=== PATIENT | male | born 1995 | race Caucasian/White ===

== ENCOUNTER 2017-08-14 16:31 | Emergency (ER) | payer MEDICAID ==
[~2017-08-14] VITALS: Ht 182.9 cm; Wt 48.7 kg
[~2017-08-14 16:31] MED LIST: CLIN-26 PO; HYDR-565 PO
[2017-08-14 17:06] LABS: BASOPHILS % (AUTO) 0.4 % (0-1); EOSINOPHILS % (AUTO) 0.1 % (0-6); HEMATOCRIT 48.3 % (42.0-52.0); HEMOGLOBIN 16.9 g/dl (14.0-17.9); LYMPHOCYTES # (AUTO) 1.1 X10'3 (1.1-4.8); LYMPHOCYTES % (AUTO) 11.5 % (21-51); MEAN CORPUSCULAR HEMOGLOBIN 31.4 PG (27.0-31.0); MEAN CORPUSCULAR HGB CONC 34.9 % (33.0-36.5); MEAN CORPUSCULAR VOLUME 90.1 FL (78-98); MEAN PLATELET VOLUME 9.5 FL (7.4-10.4); MONOCYTES # (AUTO) 0.5 X10'3 (0-0.9); MONOCYTES % (AUTO) 5.1 % (2-12); NEUTROPHILS % (AUTO) 82.9 % (42-75); PLATELET COUNT 223 X10'3 (140-440); RED BLOOD COUNT 5.37 X10'6 (4.70-6.10); RED CELL DISTRIBUTION WIDTH 12.8 % (11.5-14.5); WHITE BLOOD COUNT 9.7 X10'3 (4.5-11.0)
[2017-08-14 17:15] LABS: INR 1.1 INR; PROTHROMBIN TIME 11.3 SECONDS (9.0-12.0)
[2017-08-14 17:21] LABS: ALANINE AMINOTRANSFERASE 25 U/L (12-78); ALBUMIN 4.4 G/DL (3.4-5.0); ALBUMIN/GLOBULIN RATIO 1.3 (1.1-1.5); ALKALINE PHOSPHATASE 112 IU/L (20-180); ANION GAP 13 (8-16); ASPARTATE AMINO TRANSFERASE 22 U/L (10-37); BILIRUBIN,TOTAL 0.9 MG/DL (0.1-1.0); BLOOD UREA NITROGEN 20 MG/DL (7-18); BUN/CREATININE RATIO 20.6 (5.4-32.0); CALCIUM 9.9 MG/DL (8.5-10.1); CHLORIDE 97 MMOL/L (99-107); CREATININE 0.97 MG/DL (0.60-1.10); GLUCOSE 151 MG/DL (70-104); POTASSIUM 4.2 MMOL/L (3.5-5.1); SODIUM 133 MMOL/L (135-145); TOTAL CARBON DIOXIDE 22.9 MMOL/L (24-32); TOTAL PROTEIN 7.9 G/DL (6.4-8.2); eGFR > 90 ML/MIN
[2017-08-14 18:37] LABS: CLARITY,URINE CLOUDY (Clear); COLOR,URINE YELLOW (Yellow); GLUCOSE, URINE NEGATIVE (Neg); KETONES,URINE >=80 mg/dl (Neg); LEUKOCYTE ESTERASE ,URINE LARGE (Neg); NITRITES, URINE NEGATIVE (Neg); OCCULT BLOOD,URINE TRACE-INTACT (Neg); PH,URINE 6.5 (4.8-8.0); PROTEIN,URINE TRACE mg/dl (Neg)
[2017-08-14 18:48] LABS: UA COLLECTION TYPE CLN CATCH MIDSTREAM
[2017-08-14 18:50] LABS: BACTERIA,URINE FEW /HPF (Neg); SQUAMOUS EPITHELIAL CELL,UR FEW /LPF (FEW); WBC CLUMPS,URINE MODERATE /HPF (NEGATIVE); WBC,URINE TNTC /HPF (0-4)
[2017-08-14] MEDS ORDERED: ketorolac trometh. 30mg/ml inj. IV ONE ×2 (19:10→20:50)
[2017-08-14] MEDS ORDERED: normal saline 1000ML IV soln IV ONE (19:10)
[2017-08-14] MEDS ORDERED: morphine 4 MG/ML inj SYRINge IV PRN (19:10)
[2017-08-14] MEDS ORDERED: CefTRIAXone 250MG IM Kit w/LIDOcaine IM ONE (19:25)
[2017-08-14] MEDS ORDERED: azithromycin 250mg tablet PO ONE (19:25)
[2017-08-14] MEDS ORDERED: ondansetron/PF 4mg/2ml inj IV ONE (19:30)
[2017-08-14 20:43] VITALS: BP 128/89
[2017-08-14] MEDS ORDERED: ONDA8TAB6 PO (20:49)
[2017-08-14] MEDS ORDERED: proCHLORperazine 10 MG/2 ml inj IV ONE (20:50)
== END 2017-08-14 21:36 | disposition home or self-care (01) ==
LOC: ER 16:32
DX: N34.2 Other urethritis (principal); F17.200 Nicotine dependence, unspecified, uncomplicated; F12.10 Cannabis abuse, uncomplicated; Z88.8 Allergy status to other drugs, medicaments and biological substances
CPT/HCPCS: 36415; 80053; 81001; 85025; 85610; 87088; 87491; 87591; 96361; 96372; 96374; 96375; 99284; J0696; J0780; J1885; J2270; J2405; J7030

== ENCOUNTER 2017-08-16 12:32 | Emergency (ER) | payer MEDICAID ==
[~2017-08-16] VITALS: Ht 185.4 cm; Wt 52.0 kg
[~2017-08-16 12:32] MED LIST changes: +ONDA8TAB6 PO
[2017-08-16 12:37] VITALS: BP 107/89
[2017-08-16] MEDS ORDERED: NICO-687 TOP (12:49)
== END 2017-08-16 13:12 | disposition home or self-care (01) ==
LOC: ER 12:33
DX: F11.10 Opioid abuse, uncomplicated (principal); F17.210 Nicotine dependence, cigarettes, uncomplicated; F12.90 Cannabis use, unspecified, uncomplicated; Z90.49 Acquired absence of other specified parts of digestive tract; Z98.890 Other specified postprocedural states; Z88.8 Allergy status to other drugs, medicaments and biological substances; Z79.899 Other long term (current) drug therapy
CPT/HCPCS: 99282

== ENCOUNTER 2017-09-21 01:25 | Inpatient (IN) | payer MEDICAID ==
[~2017-09-21] VITALS: Ht 185.4 cm; Wt 55.7 kg
[~2017-09-21 01:25] MED LIST changes: +CEPH500C5 PO
[2017-09-21] MEDS ORDERED: piperacillin/tazo 3.375gm/50ml 50 ML IV ONE (01:50)
[2017-09-21] MEDS ORDERED: vancomycin/NS 1 GM ADD-VANTAGE 250 ML IV ONE (01:50)
[2017-09-21] MEDS ORDERED: ondansetron/PF 4mg/2ml inj IV ONE (01:50)
[2017-09-21] MEDS ORDERED: MORPHINE 2MG in 2ml NS syringe IV PRN ×2 (01:50→03:10)
[2017-09-21] MEDS ORDERED: normal saline 1000ML IV soln IV ONE (01:50)
[2017-09-21] MEDS ORDERED: TETanus/Pertussis (Acell)/Diphther VAC/PF (Tdap-Adult) 0.5ml syringe IMVAC ONE (01:55)
[2017-09-21 02:43] LABS: BASOPHILS # (AUTO) 0.1 X10'3 (0-0.2); BASOPHILS % (AUTO) 0.8 % (0-1); EOSINOPHILS # (AUTO) 0.2 X10'3 (0-0.9); EOSINOPHILS % (AUTO) 1.3 % (0-6); HEMATOCRIT 39.1 % (42.0-52.0); HEMOGLOBIN 13.9 g/dl (14.0-17.9); LYMPHOCYTES # (AUTO) 2.1 X10'3 (1.1-4.8); LYMPHOCYTES % (AUTO) 16.8 % (21-51); MEAN CORPUSCULAR HEMOGLOBIN 32.3 PG (27.0-31.0); MEAN CORPUSCULAR HGB CONC 35.6 % (33.0-36.5); MEAN CORPUSCULAR VOLUME 90.5 FL (78-98); MEAN PLATELET VOLUME 9.7 FL (7.4-10.4); NEUTROPHILS % (AUTO) 73.1 % (42-75); PLATELET COUNT 170 X10'3 (140-440); RED BLOOD COUNT 4.32 X10'6 (4.70-6.10); RED CELL DISTRIBUTION WIDTH 13.5 % (11.5-14.5); WHITE BLOOD COUNT 12.3 X10'3 (4.5-11.0)
[2017-09-21] MEDS: morphine 4 MG/ML inj SYRINge IV PRN ×5 (02:52→21:36)
[2017-09-21 02:57] LABS: ALANINE AMINOTRANSFERASE 26 U/L (12-78); ALBUMIN/GLOBULIN RATIO 1.2 (1.1-1.5); ALKALINE PHOSPHATASE 96 IU/L (20-180); ANION GAP 12 (8-16); ASPARTATE AMINO TRANSFERASE 17 U/L (10-37); BLOOD UREA NITROGEN 14 MG/DL (7-18); BUN/CREATININE RATIO 11.9 (5.4-32.0); CALCIUM 8.9 MG/DL (8.5-10.1); CHLORIDE 101 MMOL/L (99-107); CREATININE 1.18 MG/DL (0.60-1.10); GLUCOSE 156 MG/DL (70-104); MAGNESIUM 1.9 MG/DL (1.5-2.4); POTASSIUM 3.4 MMOL/L (3.5-5.1); SODIUM 137 MMOL/L (135-145); TOTAL CARBON DIOXIDE 23.9 MMOL/L (24-32); TOTAL PROTEIN 7.4 G/DL (6.4-8.2); eGFR 79 ML/MIN
[2017-09-21] MEDS ORDERED: potassium Cl 20 mEq SR tablet PO STA (03:31)
[2017-09-21] MEDS ORDERED: magnesium hydroxide 30ml (MOM) UD suspension PO PRN (03:50)
[2017-09-21] MEDS ORDERED: ondansetron/PF 4mg/2ml inj IV PRN (03:50)
[2017-09-21] MEDS ORDERED: acetaminophen 325mg tablet PO PRN ×2 (03:50)
[2017-09-21] MEDS ORDERED: mag hydrox/Alum hydrox/simeth 30ml oral suspension PO PRN (03:50)
[2017-09-21] MEDS: normal saline 1000ml 1,000 ML IV SCH ×3 (05:12→22:54)
[2017-09-21] MEDS ORDERED: NO HOME MEDS (05:20)
[2017-09-21 05:52] LABS: URINE AMPHETAMINE SCREEN POSITIVE (Neg); URINE BARBITUATE SCREEN NEGATIVE (Neg); URINE BENZODIAZEPINES SCREEN NEGATIVE (Neg); URINE CANNABINOID SCREEN POSITIVE (Neg); URINE COCAINE SCREEN NEGATIVE (Neg); URINE METHADONE SCREEN NEGATIVE (Neg); URINE OPIATE SCREEN POSITIVE (Neg); URINE PHENCYCLIDINE SCREEN NEGATIVE (Neg)
[2017-09-21] MEDS: piperacillin/tazo 3.375gm/50ml 50 ML IV SCH ×3 (08:00→20:10)
[2017-09-21] MEDS ORDERED: nicotine 21mg patch - 24 hr TD SCH (08:00)
[2017-09-21 13:00] VITALS: BP 113/81
[2017-09-21] MEDS ORDERED: VANCOMYCIN 750MG IV in NS 250 ML IV SCH (16:00)
[2017-09-21 18:00] VITALS: BP 129/54
[2017-09-21] MEDS ORDERED: lactobacillus rhamnosus 10,000 MMU CELLS/CAPSULE PO SCH (20:00)
[2017-09-21 22:06] VITALS: BP 122/79
[2017-09-22] MEDS: morphine 4 MG/ML inj SYRINge IV PRN (00:31)
[2017-09-22] MEDS: piperacillin/tazo 3.375gm/50ml 50 ML IV SCH (02:11)
[2017-09-23] MEDS ORDERED: VANCOMYCIN LEVEL IV NR (03:30)
== END 2017-09-22 02:35 | disposition left against medical advice (07) | DRG 351 ==
LOC: ER 01:25 → ED HOLD 03:47 → EDBEDREQ 11:50 → ORTHO 4S 13:00
PROVIDERS: ADMIT Internal Medicine; ATTEND Internal Medicine
PROC: 3E0234Z Introduction of Serum, Toxoid and Vaccine into Muscle, Percutaneous Approach (ICD-10-PCS; principal; 2017-09-21)
DX: S63.611A Unspecified sprain of left index finger, initial encounter (principal); F11.10 Opioid abuse, uncomplicated; F17.210 Nicotine dependence, cigarettes, uncomplicated; F12.10 Cannabis abuse, uncomplicated; F15.90 Other stimulant use, unspecified, uncomplicated; F43.10 Post-traumatic stress disorder, unspecified; L03.012 Cellulitis of left finger; E87.6 Hypokalemia; G89.29 Other chronic pain; Z86.14 Personal history of Methicillin resistant Staphylococcus aureus infection; Z88.8 Allergy status to other drugs, medicaments and biological substances; Z90.49 Acquired absence of other specified parts of digestive tract; Z71.6 Tobacco abuse counseling; Z23 Encounter for immunization; W01.0XXA Fall on same level from slipping, tripping and stumbling without subsequent striking against object, initial encounter; Y92.89 Other specified places as the place of occurrence of the external cause; Y99.8 Other external cause status; Y93.02 Activity, running
CPT/HCPCS: 36415; 73140; 80053; 80305; 83605; 83735; 84145; 85025; 87040; 90715; J2270; J2274; J2405; J2543; J3370; J7030

== ENCOUNTER 2017-09-24 08:58 | Inpatient (IN) | payer MEDICAID ==
[~2017-09-24] VITALS: Ht 185.4 cm; Wt 61.0 kg
[~2017-09-24 08:58] MED LIST changes: -CEPH500C5 PO; -CLIN-26 PO; -HYDR-565 PO; +NO HOME MEDS; -ONDA8TAB6 PO
[2017-09-24] MEDS ORDERED: acetaminophen 325mg tablet PO STA (09:34)
[2017-09-24] MEDS ORDERED: ibuprofen tablet 400 MG TABLET PO ONE (09:35)
[2017-09-24] MEDS ORDERED: piperacillin/tazo 3.375gm/50ml 50 ML IV ONE (09:45)
[2017-09-24] MEDS ORDERED: vancomycin/NS 1 GM ADD-VANTAGE 250 ML IV ONE (09:45)
[2017-09-24 10:43] LABS: BASOPHILS % (AUTO) 0.2 % (0-1); EOSINOPHILS # (AUTO) 0.1 X10'3 (0-0.9); EOSINOPHILS % (AUTO) 0.8 % (0-6); HEMATOCRIT 36.7 % (42.0-52.0); HEMOGLOBIN 12.9 g/dl (14.0-17.9); LYMPHOCYTES # (AUTO) 0.9 X10'3 (1.1-4.8); LYMPHOCYTES % (AUTO) 6.6 % (21-51); MEAN CORPUSCULAR HEMOGLOBIN 32.1 PG (27.0-31.0); MEAN CORPUSCULAR HGB CONC 35.2 % (33.0-36.5); MEAN CORPUSCULAR VOLUME 91.2 FL (78-98); MONOCYTES # (AUTO) 1.1 X10'3 (0-0.9); MONOCYTES % (AUTO) 8.3 % (2-12); NEUTROPHILS # (AUTO) 11.5 X10'3 (1.8-7.7); NEUTROPHILS % (AUTO) 84.1 % (42-75); PLATELET COUNT 147 X10'3 (140-440); RED BLOOD COUNT 4.02 X10'6 (4.70-6.10); RED CELL DISTRIBUTION WIDTH 13.2 % (11.5-14.5); WHITE BLOOD COUNT 13.6 X10'3 (4.5-11.0)
[2017-09-24 10:57] LABS: ALANINE AMINOTRANSFERASE 35 U/L (12-78); ALBUMIN 3.3 G/DL (3.4-5.0); ALBUMIN/GLOBULIN RATIO 0.9 (1.1-1.5); ALKALINE PHOSPHATASE 95 IU/L (20-180); ANION GAP 4 (8-16); ASPARTATE AMINO TRANSFERASE 18 U/L (10-37); BILIRUBIN,TOTAL 1.1 MG/DL (0.1-1.0); BLOOD UREA NITROGEN 9 MG/DL (7-18); BUN/CREATININE RATIO 11.7 (5.4-32.0); CALCIUM 8.8 MG/DL (8.5-10.1); CHLORIDE 100 MMOL/L (99-107); CREATININE 0.77 MG/DL (0.60-1.10); GLUCOSE 124 MG/DL (70-104); POTASSIUM 3.1 MMOL/L (3.5-5.1); SODIUM 133 MMOL/L (135-145); TOTAL CARBON DIOXIDE 28.7 MMOL/L (24-32); TOTAL PROTEIN 6.8 G/DL (6.4-8.2); eGFR > 90 ML/MIN
[2017-09-24] MEDS ORDERED: ondansetron/PF 4mg/2ml inj IV PRN (11:00)
[2017-09-24] MEDS ORDERED: bisacodyl 10mg suppository rectal RC PRN (11:00)
[2017-09-24] MEDS ORDERED: magnesium hydroxide 30ml (MOM) UD suspension PO PRN (11:00)
[2017-09-24] MEDS ORDERED: acetaminophen 325mg tablet PO PRN ×2 (11:00)
[2017-09-24] MEDS ORDERED: HYDROmorphone inj. 0.5 MG/0.5 ML DISP.SYRIN IV PRN ×2 (11:00)
[2017-09-24] MEDS ORDERED: HYDROcodone/acetaminophen 5mg/325mg tablet PO PRN (11:00)
[2017-09-24] MEDS ORDERED: metoclopramide 5 mg/ml inj IV PRN (11:00)
[2017-09-24] MEDS ORDERED: acetaminophen 650mg rectal suppository RC PRN (11:00)
[2017-09-24] MEDS ORDERED: mag hydrox/Alum hydrox/simeth 30ml oral suspension PO PRN (11:00)
[2017-09-24] MEDS: dextrose 5%-1/2 normal saline 1,000 ML IV SCH (11:35)
[2017-09-24 12:14] LABS: INR 1.1 INR; PARTIAL THROMBOPLASTIN TIME 34 SECONDS (22-32); PROTHROMBIN TIME 10.9 SECONDS (9.0-12.0)
[2017-09-24 12:26] LABS: MAGNESIUM 1.9 MG/DL (1.5-2.4); PHOSPHORUS 2.4 MG/DL (2.3-4.5)
[2017-09-24] MEDS ORDERED: potassium Cl 20 mEq SR tablet PO PRN ×2 (12:30)
[2017-09-24 13:38] LABS: URINE AMPHETAMINE SCREEN POSITIVE (Neg); URINE BARBITUATE SCREEN NEGATIVE (Neg); URINE BENZODIAZEPINES SCREEN NEGATIVE (Neg); URINE CANNABINOID SCREEN POSITIVE (Neg); URINE COCAINE SCREEN NEGATIVE (Neg); URINE METHADONE SCREEN NEGATIVE (Neg); URINE OPIATE SCREEN POSITIVE (Neg); URINE PHENCYCLIDINE SCREEN NEGATIVE (Neg)
[2017-09-24 15:29] VITALS: BP 116/70
[2017-09-24] MEDS: HYDROcodone/acetaminophen 10/325mg tab PO PRN (17:35)
[2017-09-24 18:00] VITALS: BP 117/66
[2017-09-24] MEDS: vancomycin/NS 1 GM ADD-VANTAGE 250 ML IV SCH (18:00)
[2017-09-24] MEDS ORDERED: temazepam 15mg capsule PO PRN (21:00)
[2017-09-24] MEDS: docusate sod 100mg capsule PO SCH (21:51)
[2017-09-24] MEDS: morphine 4 MG/ML inj SYRINge IV PRN (21:51)
[2017-09-24] MEDS: piperacillin/tazo 4.5gm/100ml 100 ML IV SCH (21:55)
[2017-09-25] VITALS (14 sets, daily range): BP systolic 116–149; BP diastolic 70–100
[2017-09-25] MEDS: morphine 4 MG/ML inj SYRINge IV PRN ×5 (01:29→20:06)
[2017-09-25] MEDS: vancomycin/NS 1 GM ADD-VANTAGE 250 ML IV SCH ×3 (01:31→18:54)
[2017-09-25] MEDS: dextrose 5%-1/2 normal saline 1,000 ML IV SCH ×3 (01:40→11:48)
[2017-09-25] MEDS: pantoprazole 40mg Tablet.DR PO SCH (07:30)
[2017-09-25] MEDS: piperacillin/tazo 4.5gm/100ml 100 ML IV SCH (08:00)
[2017-09-25] MEDS ORDERED: vancomycin/NS 1 GM ADD-VANTAGE 250 ML IV SCH (08:00)
[2017-09-25] MEDS: docusate sod 100mg capsule PO SCH ×2 (08:00→20:06)
[2017-09-25] MEDS ORDERED: midazolam 2 mg/2 ml injection ONE (08:03)
[2017-09-25] MEDS ORDERED: fentaNYL/PF 50MCG/1 ML 2ML syringe ONE (08:03)
[2017-09-25] MEDS ORDERED: LIDOcaine 2% (20mg/ml) 5ml vial ONE (08:05)
[2017-09-25] MEDS ORDERED: propofol inj 20 ML IV ONE (08:05)
[2017-09-25] MEDS ORDERED: ringers solution, lacted 1,000 ML IV SCH (08:28)
[2017-09-25] MEDS ORDERED: meperidine/PF 25mg/ml syringe IV PRN ×3 (08:30)
[2017-09-25] MEDS ORDERED: morphine 4 MG/ML inj SYRINge IV PRN ×2 (08:30)
[2017-09-25] MEDS ORDERED: proCHLORperazine 10 MG/2 ml inj IV PRN (08:30)
[2017-09-25] MEDS ORDERED: ondansetron/PF 4mg/2ml inj IV PRN (08:30)
[2017-09-25] MEDS ORDERED: VANCOMYCIN LEVEL IV NR (09:30)
[2017-09-25 10:54] LABS: HEMATOCRIT 37.6 % (42.0-52.0); HEMOGLOBIN 12.8 g/dl (14.0-17.9); MEAN CORPUSCULAR HEMOGLOBIN 31.7 PG (27.0-31.0); MEAN CORPUSCULAR HGB CONC 34.2 % (33.0-36.5); MEAN CORPUSCULAR VOLUME 92.9 FL (78-98); MEAN PLATELET VOLUME 9.5 FL (7.4-10.4); PLATELET COUNT 168 X10'3 (140-440); RED BLOOD COUNT 4.04 X10'6 (4.70-6.10); WHITE BLOOD COUNT 10.2 X10'3 (4.5-11.0)
[2017-09-25 11:16] LABS: ALANINE AMINOTRANSFERASE 47 U/L (12-78); ALBUMIN/GLOBULIN RATIO 0.8 (1.1-1.5); ALKALINE PHOSPHATASE 125 IU/L (20-180); ANION GAP 8 (8-16); ASPARTATE AMINO TRANSFERASE 34 U/L (10-37); BILIRUBIN,TOTAL 0.6 MG/DL (0.1-1.0); BLOOD UREA NITROGEN 9 MG/DL (7-18); BUN/CREATININE RATIO 12.2 (5.4-32.0); CALCIUM 8.5 MG/DL (8.5-10.1); CHLORIDE 104 MMOL/L (99-107); CREATININE 0.74 MG/DL (0.60-1.10); GLUCOSE 76 MG/DL (70-104); POTASSIUM 3.9 MMOL/L (3.5-5.1); SODIUM 139 MMOL/L (135-145); TOTAL CARBON DIOXIDE 27.3 MMOL/L (24-32); TOTAL PROTEIN 6.6 G/DL (6.4-8.2); VANCOMYCIN,TROUGH 6.1 UG/ML (6.0-14.0); eGFR > 90 ML/MIN
[2017-09-25] MEDS ORDERED: morphine 4 MG/ML inj SYRINge IV ONE (11:25)
[2017-09-25 12:47] LABS: TOTAL CELLS COUNTED 100
[2017-09-25 12:48] LABS: PLATELET ESTIMATE NORMAL; SMUDGE CELLS 2+; TOXIC GRANULATION 1+
[2017-09-25] MEDS ORDERED: HYDROcodone/acetaminophen 10/325mg tab PO PRN (13:00)
[2017-09-25] MEDS: HYDROcodone/acetaminophen 10/325mg tab PO PRN ×2 (16:42→22:35)
[2017-09-26 01:25] VITALS: BP 118/71
[2017-09-26] MEDS ORDERED: VANCOMYCIN LEVEL IV ONE (01:30)
[2017-09-26] MEDS: morphine 4 MG/ML inj SYRINge IV PRN ×3 (01:40→12:45)
[2017-09-26] MEDS: vancomycin/NS 1 GM ADD-VANTAGE 250 ML IV SCH (02:09)
[2017-09-26 02:15] LABS: ALANINE AMINOTRANSFERASE 39 U/L (12-78); ALBUMIN 3.1 G/DL (3.4-5.0); ALBUMIN/GLOBULIN RATIO 0.9 (1.1-1.5); ALKALINE PHOSPHATASE 103 IU/L (20-180); ANION GAP 7 (8-16); ASPARTATE AMINO TRANSFERASE 13 U/L (10-37); BILIRUBIN,TOTAL 0.5 MG/DL (0.1-1.0); BLOOD UREA NITROGEN 6 MG/DL (7-18); BUN/CREATININE RATIO 8.2 (5.4-32.0); CALCIUM 9.1 MG/DL (8.5-10.1); CHLORIDE 104 MMOL/L (99-107); CREATININE 0.73 MG/DL (0.60-1.10); GLUCOSE 92 MG/DL (70-104); POTASSIUM 3.9 MMOL/L (3.5-5.1); SODIUM 139 MMOL/L (135-145); TOTAL CARBON DIOXIDE 28.1 MMOL/L (24-32); TOTAL PROTEIN 6.7 G/DL (6.4-8.2); eGFR > 90 ML/MIN
[2017-09-26 02:16] LABS: VANCOMYCIN,TROUGH 11.8 UG/ML (6.0-14.0)
[2017-09-26 02:17] LABS: BASOPHILS # (AUTO) 0.1 X10'3 (0-0.2); EOSINOPHILS # (AUTO) 0.2 X10'3 (0-0.9); EOSINOPHILS % (AUTO) 2.6 % (0-6); HEMATOCRIT 35.9 % (42.0-52.0); HEMOGLOBIN 12.5 g/dl (14.0-17.9); LYMPHOCYTES # (AUTO) 1.5 X10'3 (1.1-4.8); LYMPHOCYTES % (AUTO) 22.1 % (21-51); MEAN CORPUSCULAR HEMOGLOBIN 31.9 PG (27.0-31.0); MEAN CORPUSCULAR HGB CONC 34.8 % (33.0-36.5); MEAN CORPUSCULAR VOLUME 91.6 FL (78-98); MEAN PLATELET VOLUME 10.1 FL (7.4-10.4); MONOCYTES # (AUTO) 0.6 X10'3 (0-0.9); MONOCYTES % (AUTO) 9.4 % (2-12); NEUTROPHILS # (AUTO) 4.3 X10'3 (1.8-7.7); NEUTROPHILS % (AUTO) 64.9 % (42-75); PLATELET COUNT 168 X10'3 (140-440); RED BLOOD COUNT 3.92 X10'6 (4.70-6.10); RED CELL DISTRIBUTION WIDTH 13.3 % (11.5-14.5); WHITE BLOOD COUNT 6.7 X10'3 (4.5-11.0)
[2017-09-26] MEDS: dextrose 5%-1/2 normal saline 1,000 ML IV SCH (03:00)
[2017-09-26] MEDS: pantoprazole 40mg Tablet.DR PO SCH (07:30)
[2017-09-26 08:00] VITALS: BP 156/76
[2017-09-26] MEDS: docusate sod 100mg capsule PO SCH (08:00)
[2017-09-26] MEDS: HYDROcodone/acetaminophen 10/325mg tab PO PRN (09:30)
[2017-09-26] MEDS ORDERED: vancomycin inj 1,250 MG in normal saline 250ml IV soln 250 ML IV SCH (10:00)
[2017-09-26 12:17] VITALS: BP 119/53
[2017-09-27] MEDS ORDERED: VANCOMYCIN LEVEL IV ONE (09:30)
== END 2017-09-26 14:20 | disposition left against medical advice (07) | DRG 364 ==
LOC: ER 08:59 → ED HOLD 10:58 → SUR 3N 15:11
PROVIDERS: ADMIT Family Medicine; ATTEND Family Medicine
PROC: 0J9K0ZZ Drainage of Left Hand Subcutaneous Tissue and Fascia, Open Approach (ICD-10-PCS; principal; 2017-09-25 07:50)
DX: L03.012 Cellulitis of left finger (principal); E87.1 Hypo-osmolality and hyponatremia; M65.842 Other synovitis and tenosynovitis, left hand; L02.512 Cutaneous abscess of left hand; M65.9 Synovitis and tenosynovitis, unspecified; B95.61 Methicillin susceptible Staphylococcus aureus infection as the cause of diseases classified elsewhere; F17.210 Nicotine dependence, cigarettes, uncomplicated; E87.6 Hypokalemia; F12.929 Cannabis use, unspecified with intoxication, unspecified; F15.129 Other stimulant abuse with intoxication, unspecified; Z53.21 Procedure and treatment not carried out due to patient leaving prior to being seen by health care provider; Z88.2 Allergy status to sulfonamides; Z88.8 Allergy status to other drugs, medicaments and biological substances; Z91.041 Radiographic dye allergy status; Z90.49 Acquired absence of other specified parts of digestive tract
CPT/HCPCS: 36415; 80053; 80202; 80305; 83605; 83735; 83880; 84100; 84145; 85025; 85610; 85730; 87040; 87070; 87077; 87186; 96365; 96366; 96368; 99285; A6222; A6449; A7000; J2001; J2250; J2270; J2543; J2704; J3010; J3370; J7030; J7120

== ENCOUNTER 2017-10-28 17:21 | Inpatient (IN) | payer MEDICAID ==
[~2017-10-28] VITALS: Ht 185.4 cm; Wt 49.0 kg
[2017-10-28] MEDS ORDERED: vancomycin/NS 1 GM ADD-VANTAGE 250 ML IV ONE (20:45)
[2017-10-28] MEDS ORDERED: CefTRIAXone/D5W-Rocephin 1gm 50 ML IV ONE (20:45)
[2017-10-28] MEDS ORDERED: HYDROcodone/acetaminophen 10/325mg tab PO ONE (20:45)
[2017-10-28 21:12] LABS: BASOPHILS # (AUTO) 0.1 X10'3 (0-0.2); BASOPHILS % (AUTO) 1.1 % (0-1); EOSINOPHILS % (AUTO) 0.2 % (0-6); HEMATOCRIT 39.6 % (42.0-52.0); HEMOGLOBIN 13.9 g/dl (14.0-17.9); LYMPHOCYTES # (AUTO) 1.2 X10'3 (1.1-4.8); LYMPHOCYTES % (AUTO) 9.9 % (21-51); MEAN CORPUSCULAR HEMOGLOBIN 31.4 PG (27.0-31.0); MEAN CORPUSCULAR HGB CONC 35.1 % (33.0-36.5); MEAN CORPUSCULAR VOLUME 89.6 FL (78-98); MEAN PLATELET VOLUME 8.8 FL (7.4-10.4); MONOCYTES # (AUTO) 1.1 X10'3 (0-0.9); MONOCYTES % (AUTO) 9.4 % (2-12); NEUTROPHILS # (AUTO) 9.7 X10'3 (1.8-7.7); NEUTROPHILS % (AUTO) 79.4 % (42-75); PLATELET COUNT 180 X10'3 (140-440); RED BLOOD COUNT 4.42 X10'6 (4.70-6.10); RED CELL DISTRIBUTION WIDTH 13.4 % (11.5-14.5); WHITE BLOOD COUNT 12.2 X10'3 (4.5-11.0)
[2017-10-28 21:37] LABS: ALANINE AMINOTRANSFERASE 24 U/L (12-78); ALBUMIN 3.4 G/DL (3.4-5.0); ALBUMIN/GLOBULIN RATIO 0.9 (1.1-1.5); ALKALINE PHOSPHATASE 96 IU/L (20-180); ANION GAP 7 (8-16); ASPARTATE AMINO TRANSFERASE 15 U/L (10-37); BILIRUBIN,TOTAL 0.6 MG/DL (0.1-1.0); BLOOD UREA NITROGEN 10 MG/DL (7-18); BUN/CREATININE RATIO 12.3 (5.4-32.0); CHLORIDE 100 MMOL/L (99-107); CREATININE 0.81 MG/DL (0.60-1.10); GLUCOSE 127 MG/DL (70-104); POTASSIUM 3.6 MMOL/L (3.5-5.1); SODIUM 136 MMOL/L (135-145); TOTAL CARBON DIOXIDE 29.4 MMOL/L (24-32); TOTAL PROTEIN 7.1 G/DL (6.4-8.2); eGFR > 90 ML/MIN
[2017-10-28] MEDS: normal saline 1000ml 1,000 ML IV SCH (22:12)
[2017-10-28] MEDS ORDERED: magnesium hydroxide 30ml (MOM) UD suspension PO PRN (22:15)
[2017-10-28] MEDS ORDERED: ondansetron/PF 4mg/2ml inj IV PRN (22:15)
[2017-10-28] MEDS ORDERED: mag hydrox/Alum hydrox/simeth 30ml oral suspension PO PRN (22:15)
[2017-10-28] MEDS ORDERED: acetaminophen 325mg tablet PO PRN (22:15)
[2017-10-28 23:20] VITALS: BP 118/86
[2017-10-29] VITALS (17 sets, daily range): BP systolic 100–132; BP diastolic 58–83
[2017-10-29] MEDS: morphine 4 MG/ML inj SYRINge IV PRN ×4 (00:34→12:58)
[2017-10-29 04:49] LABS: URINE AMPHETAMINE SCREEN NEGATIVE (Neg); URINE BARBITUATE SCREEN NEGATIVE (Neg); URINE BENZODIAZEPINES SCREEN NEGATIVE (Neg); URINE CANNABINOID SCREEN POSITIVE (Neg); URINE COCAINE SCREEN NEGATIVE (Neg); URINE METHADONE SCREEN NEGATIVE (Neg); URINE OPIATE SCREEN POSITIVE (Neg); URINE PHENCYCLIDINE SCREEN NEGATIVE (Neg)
[2017-10-29] MEDS: VANCOMYCIN 750MG IV in NS 250 ML IV SCH ×3 (05:43→21:58)
[2017-10-29 06:58] LABS: BASOPHILS # (AUTO) 0.1 X10'3 (0-0.2); BASOPHILS % (AUTO) 0.7 % (0-1); EOSINOPHILS % (AUTO) 0.3 % (0-6); HEMATOCRIT 37.1 % (42.0-52.0); LYMPHOCYTES # (AUTO) 1.1 X10'3 (1.1-4.8); LYMPHOCYTES % (AUTO) 9.3 % (21-51); MEAN CORPUSCULAR HEMOGLOBIN 31.5 PG (27.0-31.0); MEAN CORPUSCULAR HGB CONC 34.9 % (33.0-36.5); MEAN CORPUSCULAR VOLUME 90.3 FL (78-98); MEAN PLATELET VOLUME 8.9 FL (7.4-10.4); MONOCYTES # (AUTO) 0.9 X10'3 (0-0.9); MONOCYTES % (AUTO) 7.6 % (2-12); NEUTROPHILS # (AUTO) 9.8 X10'3 (1.8-7.7); NEUTROPHILS % (AUTO) 82.1 % (42-75); PLATELET COUNT 172 X10'3 (140-440); RED BLOOD COUNT 4.11 X10'6 (4.70-6.10); RED CELL DISTRIBUTION WIDTH 13.4 % (11.5-14.5); WHITE BLOOD COUNT 11.9 X10'3 (4.5-11.0)
[2017-10-29 07:30] LABS: ALANINE AMINOTRANSFERASE 20 U/L (12-78); ALBUMIN 3.1 G/DL (3.4-5.0); ALBUMIN/GLOBULIN RATIO 0.9 (1.1-1.5); ALKALINE PHOSPHATASE 93 IU/L (20-180); ANION GAP 8 (8-16); ASPARTATE AMINO TRANSFERASE 13 U/L (10-37); BILIRUBIN,TOTAL 0.5 MG/DL (0.1-1.0); BLOOD UREA NITROGEN 7 MG/DL (7-18); BUN/CREATININE RATIO 10.1 (5.4-32.0); CALCIUM 8.8 MG/DL (8.5-10.1); CHLORIDE 102 MMOL/L (99-107); CREATININE 0.69 MG/DL (0.60-1.10); GLUCOSE 134 MG/DL (70-104); POTASSIUM 3.8 MMOL/L (3.5-5.1); SODIUM 136 MMOL/L (135-145); TOTAL CARBON DIOXIDE 25.9 MMOL/L (24-32); TOTAL PROTEIN 6.5 G/DL (6.4-8.2); eGFR > 90 ML/MIN
[2017-10-29] MEDS: normal saline 1000ml 1,000 ML IV SCH ×3 (08:12→17:58)
[2017-10-29] MEDS: heparin, porcine 5000 units/ml vial SQ SCH ×2 (08:13→19:25)
[2017-10-29] MEDS ORDERED: ringers solution, lacted 1,000 ML IV SCH (15:57)
[2017-10-29] MEDS ORDERED: dexamethasone sod phosphate 10mg/ml inj ONE (16:00)
[2017-10-29] MEDS ORDERED: hydrALAZINE 20mg/ml inj. IV PRN (16:00)
[2017-10-29] MEDS ORDERED: morphine 4 MG/ML inj SYRINge IV PRN ×2 (16:00)
[2017-10-29] MEDS ORDERED: HYDROmorphone inj. 0.5 MG/0.5 ML DISP.SYRIN IV PRN ×2 (16:00)
[2017-10-29] MEDS ORDERED: sevoflurane 250ml liquid IH ONE (16:00)
[2017-10-29] MEDS ORDERED: ondansetron/PF 4mg/2ml inj IV PRN (16:00)
[2017-10-29] MEDS ORDERED: labetalol 20mg/4ml (5mg/ml) syringe IV PRN (16:00)
[2017-10-29] MEDS ORDERED: midazolam 2 mg/2 ml injection ONE (16:02)
[2017-10-29] MEDS ORDERED: fentaNYL/PF 50MCG/1 ML 2ML syringe ONE (16:02)
[2017-10-29] MEDS ORDERED: LIDOcaine 2% (20mg/ml) 5ml vial ONE (16:05)
[2017-10-29] MEDS ORDERED: propofol inj 20 ML IV ONE (16:05)
[2017-10-29] MEDS ORDERED: ROPIVAcaine 0.5% (5mg/ml) 30ml vial ONE (16:07)
[2017-10-29] MEDS ORDERED: naloxone 0.4 mg/ml inj ONE (16:38)
[2017-10-29] MEDS ORDERED: HYDROcodone/acetaminophen 5mg/325mg tablet PO PRN (19:25)
[2017-10-29] MEDS: lactobacillus rhamnosus 10,000 MMU CELLS/CAPSULE PO SCH (19:25)
[2017-10-30] MEDS: HYDROcodone/acetaminophen 10/325mg tab PO PRN ×2 (01:25→06:15)
[2017-10-30 02:00] VITALS: BP 115/68
[2017-10-30] MEDS ORDERED: VANCOMYCIN LEVEL IV ONE (05:30)
[2017-10-30 06:00] VITALS: BP 101/70
[2017-10-30] MEDS: VANCOMYCIN 750MG IV in NS 250 ML IV SCH (06:16)
[2017-10-30 07:27] LABS: BASOPHILS # (AUTO) 0.2 X10'3 (0-0.2); BASOPHILS % (AUTO) 1.2 % (0-1); EOSINOPHILS % (AUTO) 0.1 % (0-6); HEMATOCRIT 36.5 % (42.0-52.0); HEMOGLOBIN 12.4 g/dl (14.0-17.9); LYMPHOCYTES # (AUTO) 1.5 X10'3 (1.1-4.8); MEAN CORPUSCULAR HEMOGLOBIN 31.4 PG (27.0-31.0); MEAN CORPUSCULAR VOLUME 92.3 FL (78-98); MEAN PLATELET VOLUME 9.7 FL (7.4-10.4); MONOCYTES # (AUTO) 0.8 X10'3 (0-0.9); MONOCYTES % (AUTO) 5.8 % (2-12); NEUTROPHILS # (AUTO) 11.1 X10'3 (1.8-7.7); NEUTROPHILS % (AUTO) 81.9 % (42-75); PLATELET COUNT 186 X10'3 (140-440); RED BLOOD COUNT 3.95 X10'6 (4.70-6.10); RED CELL DISTRIBUTION WIDTH 13.2 % (11.5-14.5); WHITE BLOOD COUNT 13.5 X10'3 (4.5-11.0)
[2017-10-30] MEDS: lactobacillus rhamnosus 10,000 MMU CELLS/CAPSULE PO SCH (07:57)
[2017-10-30] MEDS: heparin, porcine 5000 units/ml vial SQ SCH (07:57)
[2017-10-30 08:08] LABS: ALANINE AMINOTRANSFERASE 27 U/L (12-78); ALBUMIN 2.9 G/DL (3.4-5.0); ALBUMIN/GLOBULIN RATIO 0.8 (1.1-1.5); ALKALINE PHOSPHATASE 98 IU/L (20-180); ANION GAP 7 (8-16); ASPARTATE AMINO TRANSFERASE 13 U/L (10-37); BILIRUBIN,TOTAL 0.2 MG/DL (0.1-1.0); BLOOD UREA NITROGEN 11 MG/DL (7-18); BUN/CREATININE RATIO 16.4 (5.4-32.0); CALCIUM 8.7 MG/DL (8.5-10.1); CHLORIDE 104 MMOL/L (99-107); CREATININE 0.67 MG/DL (0.60-1.10); GLUCOSE 120 MG/DL (70-104); SODIUM 137 MMOL/L (135-145); TOTAL CARBON DIOXIDE 26.5 MMOL/L (24-32); TOTAL PROTEIN 6.4 G/DL (6.4-8.2); eGFR > 90 ML/MIN
[2017-10-30 08:10] LABS: VANCOMYCIN,TROUGH 4.3 UG/ML (6.0-14.0)
[2017-10-30 10:00] VITALS: BP 112/65
== END 2017-10-30 11:10 | disposition left against medical advice (07) | DRG 364 ==
LOC: ER 17:22 → ED HOLD 22:43 → ORTHO 4S 23:13
PROVIDERS: ADMIT Internal Medicine; ATTEND Family Medicine
PROC: 0J9J0ZZ Drainage of Right Hand Subcutaneous Tissue and Fascia, Open Approach (ICD-10-PCS; principal; 2017-10-29 16:00)
DX: L03.011 Cellulitis of right finger (principal); F11.10 Opioid abuse, uncomplicated; M65.9 Synovitis and tenosynovitis, unspecified; L02.511 Cutaneous abscess of right hand; F15.10 Other stimulant abuse, uncomplicated; F17.200 Nicotine dependence, unspecified, uncomplicated; Z90.49 Acquired absence of other specified parts of digestive tract; Z88.8 Allergy status to other drugs, medicaments and biological substances
CPT/HCPCS: 36415; 73140; 80053; 80202; 80305; 85025; 87070; 87075; 87077; 87102; 87186; 93306; 96365; 96366; 96368; 99285; A6258; A6446; A6449; A7000; J0696; J1100; J1644; J2001; J2250; J2270; J2310; J2704; J2795; J3010; J3370; J7030; J7120

== ENCOUNTER 2018-07-27 01:19 | Emergency (ER) | payer MEDICAID, OTHER ==
[~2018-07-27] VITALS: Ht 185.4 cm; Wt 70.5 kg
[2018-07-27 01:24] VITALS: BP 137/90
[2018-07-27] MEDS ORDERED: IBUP-1985 PO (01:53)
[2018-07-27] MEDS ORDERED: BACDS PO (01:53)
[2018-07-27] MEDS ORDERED: sulfamethoxazole/trimethoprim DS (800/160mg) tablet PO ONE (01:55)
[2018-07-27] MEDS ORDERED: ibuprofen tablet 400 MG TABLET PO ONE (01:55)
[2018-07-27] MEDS ORDERED: ibuprofen 200mg tablet PO ONE (01:55)
== END 2018-07-27 02:05 | disposition home or self-care (01) ==
LOC: ER 01:19
DX: L02.01 Cutaneous abscess of face (principal); F12.90 Cannabis use, unspecified, uncomplicated; F15.90 Other stimulant use, unspecified, uncomplicated; F11.90 Opioid use, unspecified, uncomplicated; F17.210 Nicotine dependence, cigarettes, uncomplicated; Z86.14 Personal history of Methicillin resistant Staphylococcus aureus infection; Z90.49 Acquired absence of other specified parts of digestive tract; Z98.890 Other specified postprocedural states; Z88.8 Allergy status to other drugs, medicaments and biological substances; Z91.041 Radiographic dye allergy status; Z79.899 Other long term (current) drug therapy; Z79.1 Long term (current) use of non-steroidal anti-inflammatories (NSAID)
CPT/HCPCS: 99283

== ENCOUNTER 2018-08-11 02:42 | Emergency (ER) | payer OTHER ==
[~2018-08-11] VITALS: Ht 185.4 cm; Wt 65.9 kg
[~2018-08-11 02:42] MED LIST changes: +BACDS PO; +IBUP-1985 PO
[2018-08-11 02:44] VITALS: BP 108/67
--- NOTE | 2018-08-11 03:30 | NUR ---
DR THAKKAR AT BEDSIDE WITH PT
[2018-08-11] MEDS ORDERED: ketorolac trometh inj. 60 MG/2 ML VIAL IM ONE (03:40)
== END 2018-08-11 04:08 | disposition home or self-care (01) ==
LOC: ER 02:43
DX: M25.561 Pain in right knee (principal); F12.90 Cannabis use, unspecified, uncomplicated; F15.90 Other stimulant use, unspecified, uncomplicated; F11.90 Opioid use, unspecified, uncomplicated; Z86.14 Personal history of Methicillin resistant Staphylococcus aureus infection; Z90.49 Acquired absence of other specified parts of digestive tract; Z98.890 Other specified postprocedural states; Z88.8 Allergy status to other drugs, medicaments and biological substances; Z79.2 Long term (current) use of antibiotics; Z79.899 Other long term (current) drug therapy
CPT/HCPCS: 73564; 96372; 99283; J1885

== ENCOUNTER 2022-06-22 10:25 | Emergency (ER) | payer SELFPAY ==
[~2022-06-22] VITALS: Ht 182.9 cm; Wt 81.8 kg
[~2022-06-22 10:25] MED LIST changes: -BACDS PO
[2022-06-22 11:41] VITALS: BP 138/104
[2022-06-22] MEDS ORDERED: TETanus/Pertussis (Acell)/Diphther VAC/PF (Tdap-Adult) 0.5ml syringe IMVAC ONE (14:45)
[2022-06-22] MEDS ORDERED: bacitracin 15gm ointment TP ONE (14:45)
[2022-06-22] MEDS ORDERED: LIDOcaine 1% W/epiNEPHrine 1:100,000 20ml vial IJ ONE (14:46)
[2022-06-22] MEDS ORDERED: SULF1TAB45 PO (15:09)
[2022-06-22] MEDS ORDERED: CEPH250T PO (15:09)
[2022-06-22] MEDS ORDERED: sulfamethoxazole/trimethoprim DS (800/160mg) tablet PO ONE (15:10)
[2022-06-22] MEDS ORDERED: cephalexin 500mg capsule PO ONE (15:10)
== END 2022-06-22 15:39 | disposition home or self-care (01) ==
LOC: ER 10:25
DX: L02.511 Cutaneous abscess of right hand (principal); Z87.81 Personal history of (healed) traumatic fracture; F15.10 Other stimulant abuse, uncomplicated; Z86.14 Personal history of Methicillin resistant Staphylococcus aureus infection
CPT/HCPCS: 10060; 90471; 90715; 99284; J3490; A6258

== ENCOUNTER 2022-08-04 11:24 | Emergency (ER) | payer OTHER ==
[~2022-08-04] VITALS: Ht 182.9 cm; Wt 77.3 kg
[2022-08-04 11:27] VITALS: BP 153/103
[2022-08-04] MEDS ORDERED: acetaminophen 325mg tablet PO ONE (12:20)
[2022-08-04] MEDS ORDERED: LIDOcaine 1% W/epiNEPHrine 1:200,000 10ml vial IJ ONE (13:10)
[2022-08-04] MEDS ORDERED: LIDOcaine 1% W/epiNEPHrine 1:100,000 20ml vial IJ ONE (13:30)
[2022-08-04] MEDS ORDERED: CEPH-585 PO ×2 (13:42)
[2022-08-04] MEDS ORDERED: SULF1TAB49 PO ×2 (13:42)
[2022-08-05] MEDS ORDERED: TRAZ150T78 PO (18:11)
== END 2022-08-04 13:58 | disposition home or self-care (01) ==
LOC: ER 11:25
DX: L02.511 Cutaneous abscess of right hand (principal); L03.113 Cellulitis of right upper limb; F12.90 Cannabis use, unspecified, uncomplicated; F15.20 Other stimulant dependence, uncomplicated; Z88.8 Allergy status to other drugs, medicaments and biological substances
CPT/HCPCS: 10061; 73130; 99284; J3490; 10060; A6449

== ENCOUNTER 2022-08-05 14:16 | Inpatient (IN) | payer OTHER ==
[2022-08-05] VITALS (9 sets, daily range): BP systolic 126–145; BP diastolic 72–92
[~2022-08-05] VITALS: Ht 182.9 cm; Wt 75.6 kg
[~2022-08-05 14:16] MED LIST changes: +CEPH-585 PO; +SULF1TAB49 PO
[2022-08-05] MEDS ORDERED: morphine 4 MG/ML inj SYRINge IV ONE ×2 (15:30→16:40)
[2022-08-05] MEDS ORDERED: ondansetron/PF 4mg/2ml inj IV ONE (15:30)
[2022-08-05] MEDS ORDERED: VANCOmycin 1250MG/NS 250ml Bag 250 ML IV ONE (15:34)
[2022-08-05] MEDS ORDERED: cefepime 2g/NS 100ml ADVANTAGE 100 ML IV ONE (15:34)
[2022-08-05 16:02] LABS: BASOPHILS % (AUTO) 0.3 % (0-1); EOSINOPHILS # (AUTO) 0.1 X10'3 (0-0.9); EOSINOPHILS % (AUTO) 0.6 % (0-6); HEMATOCRIT 42.1 % (42.0-52.0); LYMPHOCYTES % (AUTO) 6.6 % (21-51); MEAN CORPUSCULAR HEMOGLOBIN 30.4 PG (27.0-31.0); MEAN CORPUSCULAR HGB CONC 33.3 g/dL (33.0-36.5); MEAN CORPUSCULAR VOLUME 91.2 FL (78-98); MEAN PLATELET VOLUME 8.5 FL (7.4-10.4); MONOCYTES # (AUTO) 1.1 X10'3 (0-0.9); MONOCYTES % (AUTO) 7.2 % (2-12); NEUTROPHILS # (AUTO) 13.2 X10'3 (1.8-7.7); NEUTROPHILS % (AUTO) 85.3 % (42-75); PLATELET COUNT 211 X10'3 (140-440); RED BLOOD COUNT 4.62 X10'6 (4.70-6.10); RED CELL DISTRIBUTION WIDTH 14.3 % (11.5-14.5); WHITE BLOOD COUNT 15.5 X10'3 (4.5-11.0)
[2022-08-05 16:28] LABS: ALANINE AMINOTRANSFERASE 33 U/L (12-78); ALBUMIN 3.4 G/DL (3.4-5.0); ALBUMIN/GLOBULIN RATIO 0.9 (1.1-1.5); ALKALINE PHOSPHATASE 83 IU/L (46-116); ANION GAP 7 (8-16); ASPARTATE AMINO TRANSFERASE 15 U/L (10-37); BILIRUBIN,TOTAL 0.4 MG/DL (0.1-1.0); BLOOD UREA NITROGEN 10 MG/DL (7-18); C-REACTIVE PROTEIN 3.51 MG/DL (0.0-0.5); CALCIUM 9.2 MG/DL (8.5-10.1); CHLORIDE 100 MMOL/L (99-107); CREATININE 0.77 MG/DL (0.60-1.10); GLUCOSE 174 MG/DL (70-104); POTASSIUM 3.9 MMOL/L (3.5-5.1); SODIUM 132 MMOL/L (135-145); TOTAL CARBON DIOXIDE 25.1 MMOL/L (24-32); TOTAL PROTEIN 7.1 G/DL (6.4-8.2); eGFR > 90 ML/MIN
[2022-08-05] MEDS ORDERED: normal saline 1000ML IV soln IVB ONE (16:35)
[2022-08-05] MEDS ORDERED: magnesium 2GM in 50ml NS 50 ML IV PRN (17:05)
[2022-08-05] MEDS ORDERED: HYDROmorphone/PF 0.2 MG/ML SYRINGE IV PRN ×3 (17:05→20:05)
[2022-08-05] MEDS ORDERED: LORazepam 2 mg/ml vial IV PRN (17:05)
[2022-08-05] MEDS ORDERED: magnesium 4gm in 100ml NS 100 ML IV PRN (17:05)
[2022-08-05] MEDS ORDERED: magnesium hydroxide 30ml (MOM) UD suspension PO PRN (17:05)
[2022-08-05] MEDS ORDERED: PERFLUTREN PROTEIN-A MICROSPHR (Optison) 0.22 MG/ML 3ML VIAL IV ONE (17:05)
[2022-08-05] MEDS ORDERED: ondansetron/PF 4mg/2ml inj IV PRN ×2 (17:05→20:05)
[2022-08-05] MEDS ORDERED: acetaminophen 650mg rectal suppository RC PRN (17:05)
[2022-08-05] MEDS ORDERED: mag hydrox/Alum hydrox/simeth 30ml oral suspension PO PRN (17:05)
[2022-08-05] MEDS ORDERED: bisacodyl 10mg suppository rectal RC PRN (17:05)
[2022-08-05] MEDS ORDERED: potassium Cl 40MEQ/1/2NS 520ml 520 ML IV PRN (17:05)
[2022-08-05] MEDS ORDERED: HYDROcodone/acetaminophen 5mg/325mg tablet PO PRN (17:05)
[2022-08-05] MEDS ORDERED: acetaminophen 325mg tablet PO PRN ×2 (17:05)
[2022-08-05] MEDS ORDERED: magnesium Cl slow-release 64mg tablet PO PRN (17:05)
[2022-08-05] MEDS ORDERED: ondansetron 4mg rapidly disintigrating tab PO PRN (17:05)
[2022-08-05] MEDS ORDERED: potassium Cl 20 mEq SR tablet PO PRN ×2 (17:05)
[2022-08-05] MEDS ORDERED: LORazepam 0.5 MG tablet PO PRN (17:05)
[2022-08-05 17:35] LABS: CLARITY,URINE CLOUDY (Clear); COLOR,URINE YELLOW (Yellow); GLUCOSE, URINE NEGATIVE (Neg); KETONES,URINE NEGATIVE (Neg); LEUKOCYTE ESTERASE ,URINE NEGATIVE (Neg); NITRITES, URINE NEGATIVE (Neg); OCCULT BLOOD,URINE NEGATIVE (Neg); PH,URINE 7.5 (4.8-8.0); PROTEIN,URINE NEGATIVE (Neg); UROBILINOGEN,URINE 0.2 E.U/dL (0.2-1.0)
[2022-08-05 17:36] LABS: UA COLLECTION TYPE CLN CATCH MIDSTREAM
[2022-08-05 17:44] LABS: AMORPHOUS PHOSPHATES 2+; BACTERIA,URINE FEW /HPF (Neg); RBC,URINE 0-2 /HPF (0-2); SQUAMOUS EPITHELIAL CELL,UR FEW /LPF (FEW); WBC,URINE 0-4 /HPF (0-4)
[2022-08-05] MEDS: HYDROmorphone inj. 0.5 MG/0.5 ML DISP.SYRIN IV PRN (17:55)
--- NOTE | 2022-08-05 18:08 | NUR ---
PT IS HAVING US AT BEDSIDE AT THIS TIME.
[2022-08-05] MEDS ORDERED: TRAZ150T78 PO (18:11)
[2022-08-05] MEDS: HYDROcodone/acetaminophen 10/325mg tab PO PRN ×2 (19:04→23:09)
--- NOTE | 2022-08-05 19:19 | NUR ---
ivp given by charge nurse
--- NOTE | 2022-08-05 19:29 | NUR ---
report given to pacu nurse pt tx to the or with tech
[2022-08-05] MEDS ORDERED: morphine 4 MG/ML inj SYRINge IV PRN (20:05)
[2022-08-05] MEDS ORDERED: proCHLORperazine 10 MG/2 ml inj IV PRN (20:05)
[2022-08-05] MEDS ORDERED: meperidine/PF 25mg/ml syringe IV PRN (20:05)
[2022-08-05] MEDS ORDERED: ketorolac trometh. 30mg/ml inj. IV ONE (20:05)
[2022-08-05] MEDS ORDERED: labetalol 20mg/4ml (5mg/ml) syringe IV PRN (20:05)
[2022-08-05] MEDS ORDERED: morphine 2 MG/ML inj. syringe IV PRN (20:05)
[2022-08-05] MEDS ORDERED: acetaminophen 1,000mg/100ml IV 100 ML IV PRN (20:05)
[2022-08-05] MEDS ORDERED: ringers solution, lacted 1,000 ML IV SCH (20:05)
[2022-08-05] MEDS ORDERED: hydrALAZINE 20mg/ml inj. IV PRN (20:05)
[2022-08-05] MEDS ORDERED: BUPIVAcaine/PF 2.5 mg/ml (0.25%) 30ml vial ONE (20:06)
[2022-08-05] MEDS ORDERED: sevoflurane 250ml liquid IH ONE (20:14)
[2022-08-05] MEDS ORDERED: fentaNYL/PF 50MCG/1 ML 2ML syringe ONE (20:26)
[2022-08-05] MEDS ORDERED: LIDOcaine 2% (20mg/ml) 5ml vial ONE (20:26)
[2022-08-05] MEDS ORDERED: propofol inj 20 ML IV ONE (20:26)
[2022-08-05] MEDS ORDERED: ondansetron/PF 4mg/2ml inj ONE (20:30)
[2022-08-05] MEDS ORDERED: dexamethasone sod phosphate 4mg/ml inj. ONE (20:30)
[2022-08-05] MEDS ORDERED: ceFOXitin 1000 MG inj ONE ×2 (20:38)
--- NOTE | 2022-08-05 20:48 | NUR ---
Received from OR via DANIELLE, accompanied by Anesthesiologist DR WILLIS and report given by Anesthesiologist AND BUTTERMAKER CONTINUOUS CHURN. PT VERY DROWSY, NO S/S OF DISTRESS/DISCOMFORT. 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 Addendum: 08/05/22 at 2217 by Cinthya James RN Amended: Links added.
--- NOTE | 2022-08-05 21:58 | NUR ---
Report called to receiving nurse. PT C/O PAIN TO RIGHT HAND, 30 MG TORADOL AND 4 MG MORPHINE GIVEN. Transferred via GURNEY, 2 BAGS OF Belongings SENT W/PT TO ROOM 4007, RECEIVING RN AT BEDSIDE TO RECEIVE PT. Special Issues communicated to receiving nurse. YES. Addendum: 08/05/22 at 2219 by Cinthya James RN Amended: Links added.
--- NOTE | 2022-08-05 22:15 | NUR ---
PATIENT ADMITTED TO ROOM 4007 FROM RECOVERY ROOM AFTER I&D WAS DONE BY DR. LA. PLACED COMFORTABLE IN BED. VITAL SIGNS TAKEN AND RECORDED.
[2022-08-05] MEDS: K and/or MAG REPLACEMENT MC SCH (22:30)
[2022-08-05] MEDS: normal saline 1000ml 1,000 ML IV SCH (22:30)
[2022-08-05] MEDS: docusate sod 100mg capsule PO SCH (23:09)
[2022-08-06] MEDS: cefepime 1GM/NS ADD-VANTAGE 100 ML IV SCH ×4 (00:27→23:45)
[2022-08-06] MEDS: vancomycin/NS 1 GM ADD-VANTAGE 250 ML IV SCH ×3 (01:45→17:04)
[2022-08-06] MEDS: HYDROmorphone inj. 0.5 MG/0.5 ML DISP.SYRIN IV PRN ×5 (01:53→20:53)
[2022-08-06 02:15] VITALS: BP 136/78
[2022-08-06] MEDS: normal saline 1000ml 1,000 ML IV SCH (04:12)
[2022-08-06] MEDS: HYDROcodone/acetaminophen 10/325mg tab PO PRN ×5 (04:13→23:54)
--- NOTE | 2022-08-06 06:20 | NUR ---
Problems reprioritized. Patient report given, questions answered & plan of care reviewed with JOHANA TAM.
[2022-08-06 07:53] LABS: BASOPHILS # (AUTO) 0.1 X10'3 (0-0.2); BASOPHILS % (AUTO) 0.4 % (0-1); EOSINOPHILS % (AUTO) 0 % (0-6); HEMATOCRIT 38.4 % (42.0-52.0); HEMOGLOBIN 12.9 g/dl (14.0-17.9); LYMPHOCYTES # (AUTO) 0.9 X10'3 (1.1-4.8); LYMPHOCYTES % (AUTO) 5.8 % (21-51); MEAN CORPUSCULAR HEMOGLOBIN 30.5 PG (27.0-31.0); MEAN CORPUSCULAR HGB CONC 33.5 g/dL (33.0-36.5); MONOCYTES # (AUTO) 0.6 X10'3 (0-0.9); MONOCYTES % (AUTO) 3.7 % (2-12); NEUTROPHILS # (AUTO) 14.5 X10'3 (1.8-7.7); NEUTROPHILS % (AUTO) 90.1 % (42-75); PLATELET COUNT 214 X10'3 (140-440); RED BLOOD COUNT 4.22 X10'6 (4.70-6.10); RED CELL DISTRIBUTION WIDTH 14.3 % (11.5-14.5); WHITE BLOOD COUNT 16.2 X10'3 (4.5-11.0)
[2022-08-06 08:00] LABS: ALANINE AMINOTRANSFERASE 27 U/L (12-78); ALBUMIN 2.9 G/DL (3.4-5.0); ALBUMIN/GLOBULIN RATIO 0.8 (1.1-1.5); ALKALINE PHOSPHATASE 69 IU/L (46-116); ANION GAP 6 (8-16); ASPARTATE AMINO TRANSFERASE 11 U/L (10-37); BILIRUBIN,TOTAL 0.6 MG/DL (0.1-1.0); BLOOD UREA NITROGEN 14 MG/DL (7-18); BUN/CREATININE RATIO 20.6 (10.0-20.0); CALCIUM 9.1 MG/DL (8.5-10.1); CHLORIDE 100 MMOL/L (99-107); CREATININE 0.68 MG/DL (0.60-1.10); GLUCOSE 125 MG/DL (70-104); MAGNESIUM 2.2 MG/DL (1.5-2.4); POTASSIUM 4.6 MMOL/L (3.5-5.1); SODIUM 132 MMOL/L (135-145); TOTAL CARBON DIOXIDE 26.3 MMOL/L (24-32); TOTAL PROTEIN 6.6 G/DL (6.4-8.2); eGFR > 90 ML/MIN
[2022-08-06] MEDS: K and/or MAG REPLACEMENT MC SCH ×2 (08:00→20:00)
[2022-08-06] MEDS: docusate sod 100mg capsule PO SCH ×2 (08:00→20:52)
--- NOTE | 2022-08-06 10:37 | NUR ---
Received order for consult. Met with patient in regards to substance use and to see if patient was interested in resources. Patient is currently in [facility] but feels like he needs more help. Patient would like to start Suboxone. I will talk to patients doctor appt starting. I gave patient a card for [facility] to take over Suboxone and I gave patient my card to call me with any questions.
--- NOTE | 2022-08-06 11:26 | NUR ---
Malnutrition consult: Pt reports 2-13 lb wt loss with decreased appetite/PO intake per malnutrition risk screen with RN. Current scaled wt is appropriate and greater than reported wt hx in EMR. Per EMR pt with no decrease in muscle strength though with 2+ mild edema to right hand where pt has cellulitis. Per H&P pt appears well developed well nourished. Pt currently lacks a minimum of two criteria for malnutrition though will continue to monitor s/s of malnutrition. Pt admit for sepsis, right hand cellulitis, and multiple abscesses. Currently POD #1 s/p I&D of right hand. Wound care has been consulted for further skin assessment, note pending at this time. Pt currently NPO, unable to provide a nutrition intervention at this time. Recommend advancing to regular diet as medically indicated. LBM 6/9 per EMR. Pt with routine and PRN bowel care available however per EMR pt refused routine bowel care this morning. Will continue to follow closely and make recommendations as appropriate. Recommendations: 1) Advance to regular diet as medically indicated 2) Monitor need for ONS/additional protein with diet advancement 3) Routine bowel care 4) Weekly scaled weights Addendum: 08/06/22 at [address] Amended: Links added.
--- NOTE | 2022-08-06 14:21 | NUR ---
WOUND INFECTION EDUCATION PROVIDED BY WOUND CARE 1. Patient instructed to call their primary doctor, or go the ED immediately if any of the following symptoms occur: * Increased pain in wound * Increase in drainage from the wound * Redness in the skin surrounding the wound * Warmth in the skin surrounding the wound * Bleeding from the wound * Temperature of 101 or greater 2. If any of these occur while in the hospital tell a nurse immediately. Addendum: 08/06/22 at 1421 by Kristy Pérez LVN Amended: Links added.
--- NOTE | 2022-08-06 17:45 | NUR ---
WELCOME DESK AGENT documentation: I have reviewed and agree with all interventions, assessments performed and documented by Amairani Tobar LVN.
[2022-08-06 18:00] VITALS: BP 133/70
[2022-08-06 22:00] VITALS: BP 123/72
[2022-08-06] MEDS: temazepam 15mg capsule PO PRN (22:05)
[2022-08-06] MEDS ORDERED: VANCOMYCIN LEVEL IV ONE (23:30)
[2022-08-07] MEDS: HYDROmorphone inj. 0.5 MG/0.5 ML DISP.SYRIN IV PRN ×5 (01:04→20:48)
[2022-08-07] MEDS: vancomycin/NS 1 GM ADD-VANTAGE 250 ML IV SCH ×3 (02:02→17:22)
[2022-08-07] MEDS: HYDROcodone/acetaminophen 10/325mg tab PO PRN ×4 (06:13→19:16)
[2022-08-07 06:30] VITALS: BP 122/68
[2022-08-07] MEDS: docusate sod 100mg capsule PO SCH ×2 (07:57→19:17)
[2022-08-07] MEDS: cefepime 1GM/NS ADD-VANTAGE 100 ML IV SCH ×3 (07:58→22:17)
[2022-08-07] MEDS: K and/or MAG REPLACEMENT MC SCH ×2 (08:00→19:05)
[2022-08-07 08:29] LABS: BASOPHILS % (AUTO) 0.6 % (0-1); EOSINOPHILS # (AUTO) 0.2 X10'3 (0-0.9); EOSINOPHILS % (AUTO) 2.5 % (0-6); HEMATOCRIT 39.8 % (42.0-52.0); HEMOGLOBIN 13.6 g/dl (14.0-17.9); LYMPHOCYTES # (AUTO) 1.5 X10'3 (1.1-4.8); LYMPHOCYTES % (AUTO) 24.9 % (21-51); MEAN CORPUSCULAR HEMOGLOBIN 30.9 PG (27.0-31.0); MEAN CORPUSCULAR HGB CONC 34.1 g/dL (33.0-36.5); MEAN CORPUSCULAR VOLUME 90.7 FL (78-98); MEAN PLATELET VOLUME 8.7 FL (7.4-10.4); MONOCYTES # (AUTO) 0.7 X10'3 (0-0.9); MONOCYTES % (AUTO) 11.5 % (2-12); NEUTROPHILS # (AUTO) 3.7 X10'3 (1.8-7.7); NEUTROPHILS % (AUTO) 60.5 % (42-75); PLATELET COUNT 210 X10'3 (140-440); RED BLOOD COUNT 4.39 X10'6 (4.70-6.10); RED CELL DISTRIBUTION WIDTH 14.5 % (11.5-14.5); WHITE BLOOD COUNT 6.1 X10'3 (4.5-11.0)
[2022-08-07 09:03] LABS: ALANINE AMINOTRANSFERASE 28 U/L (12-78); ALBUMIN/GLOBULIN RATIO 0.8 (1.1-1.5); ALKALINE PHOSPHATASE 65 IU/L (46-116); ANION GAP 5 (8-16); ASPARTATE AMINO TRANSFERASE 10 U/L (10-37); BILIRUBIN,TOTAL 0.4 MG/DL (0.1-1.0); BLOOD UREA NITROGEN 22 MG/DL (7-18); BUN/CREATININE RATIO 27.8 (10.0-20.0); C-REACTIVE PROTEIN 3.96 MG/DL (0.0-0.5); CALCIUM 9.5 MG/DL (8.5-10.1); CHLORIDE 100 MMOL/L (99-107); CREATININE 0.79 MG/DL (0.60-1.10); GLUCOSE 94 MG/DL (70-104); MAGNESIUM 2.2 MG/DL (1.5-2.4); POTASSIUM 4.4 MMOL/L (3.5-5.1); SODIUM 133 MMOL/L (135-145); TOTAL CARBON DIOXIDE 27.6 MMOL/L (24-32); TOTAL PROTEIN 6.7 G/DL (6.4-8.2); eGFR > 90 ML/MIN
[2022-08-07 10:00] VITALS: BP 139/73
[2022-08-07] MEDS ORDERED: LIDOcaine 2% jelly 6ml syringe ***for topical use only MM PRN (10:55)
[2022-08-07] MEDS ORDERED: LIDOcaine 2% jelly 6ml syringe ***for topical use only TOP PRN (11:18)
[2022-08-07] MEDS: nicotine 21mg patch - 24 hr TD SCH (12:11)
[2022-08-07] MEDS ORDERED: VANCOMYCIN LEVEL IV ONE (15:30)
--- NOTE | 2022-08-07 17:59 | NUR ---
promotional table spacer promotional table spacer Page Sent promotional table spacer PAGER ID: [phone] MESSAGE: Pt does not want IV abt anymore, states pain to IV site, New IV placed, same complaint. [id number]
[2022-08-07 18:00] VITALS: BP 131/62
--- NOTE | 2022-08-07 18:02 | NUR ---
promotional table spacer promotional table spacer Page Sent promotional table spacer PAGER ID: [phone] MESSAGE: Pt does not want IV abt anymore, states pain to IV site, New IV placed, same complaint. [id number]
--- NOTE | 2022-08-07 18:22 | NUR ---
Pt agreed to continue IV ABT
[2022-08-07] MEDS: temazepam 15mg capsule PO PRN ×2 (20:47→22:17)
[2022-08-07 22:00] VITALS: BP 122/71
[2022-08-08] MEDS: HYDROcodone/acetaminophen 10/325mg tab PO PRN ×2 (01:37→07:49)
[2022-08-08] MEDS: HYDROmorphone inj. 0.5 MG/0.5 ML DISP.SYRIN IV PRN ×2 (04:36→09:11)
--- NOTE | 2022-08-08 06:42 | NUR ---
Patient in room [facility] 4007. I have received report from SAMANTHA Ramos and had the opportunity to ask questions and assume patient care.
[2022-08-08 06:52] LABS: BASOPHILS # (AUTO) 0.1 X10'3 (0-0.2); BASOPHILS % (AUTO) 0.9 % (0-1); EOSINOPHILS # (AUTO) 0.3 X10'3 (0-0.9); EOSINOPHILS % (AUTO) 3.8 % (0-6); HEMOGLOBIN 14.1 g/dl (14.0-17.9); LYMPHOCYTES # (AUTO) 1.7 X10'3 (1.1-4.8); LYMPHOCYTES % (AUTO) 25.5 % (21-51); MEAN CORPUSCULAR HEMOGLOBIN 31.4 PG (27.0-31.0); MEAN CORPUSCULAR HGB CONC 34.3 g/dL (33.0-36.5); MEAN CORPUSCULAR VOLUME 91.4 FL (78-98); MEAN PLATELET VOLUME 8.4 FL (7.4-10.4); MONOCYTES # (AUTO) 0.8 X10'3 (0-0.9); MONOCYTES % (AUTO) 11.9 % (2-12); NEUTROPHILS # (AUTO) 3.8 X10'3 (1.8-7.7); NEUTROPHILS % (AUTO) 57.9 % (42-75); PLATELET COUNT 236 X10'3 (140-440); RED BLOOD COUNT 4.49 X10'6 (4.70-6.10); RED CELL DISTRIBUTION WIDTH 14.4 % (11.5-14.5); WHITE BLOOD COUNT 6.6 X10'3 (4.5-11.0)
--- NOTE | 2022-08-08 06:58 | NUR ---
Patient refused AM vitals
[2022-08-08 07:09] LABS: ALANINE AMINOTRANSFERASE 22 U/L (12-78); ALBUMIN 2.8 G/DL (3.4-5.0); ALBUMIN/GLOBULIN RATIO 0.7 (1.1-1.5); ALKALINE PHOSPHATASE 67 IU/L (46-116); ANION GAP 7 (8-16); ASPARTATE AMINO TRANSFERASE 14 U/L (10-37); BILIRUBIN,TOTAL 0.3 MG/DL (0.1-1.0); BLOOD UREA NITROGEN 25 MG/DL (7-18); BUN/CREATININE RATIO 33.8 (10.0-20.0); C-REACTIVE PROTEIN 2.03 MG/DL (0.0-0.5); CALCIUM 8.9 MG/DL (8.5-10.1); CHLORIDE 101 MMOL/L (99-107); CREATININE 0.74 MG/DL (0.60-1.10); GLUCOSE 85 MG/DL (70-104); POTASSIUM 4.3 MMOL/L (3.5-5.1); SODIUM 136 MMOL/L (135-145); TOTAL PROTEIN 6.6 G/DL (6.4-8.2); eGFR > 90 ML/MIN
[2022-08-08] MEDS: nicotine 21mg patch - 24 hr TD SCH (07:46)
[2022-08-08] MEDS: docusate sod 100mg capsule PO SCH (07:49)
[2022-08-08] MEDS: K and/or MAG REPLACEMENT MC SCH (08:10)
[2022-08-08] MEDS: cefepime 1GM/NS ADD-VANTAGE 100 ML IV SCH (09:11)
[2022-08-08 10:00] VITALS: BP 125/65
[2022-08-08] MEDS ORDERED: oxyCODONE/APAP 5-325mg tablet PO PRN (11:05)
--- NOTE | 2022-08-08 14:32 | NUR ---
TRANSCRIBER documentation: I have reviewed and agree with all interventions, assessments performed and documented by Patti Chung LVN.
[2022-08-08] MEDS ORDERED: NICO-687 TD (14:35)
[2022-08-08] MEDS ORDERED: PER5325T PO (14:35)
[2022-08-08] MEDS ORDERED: DOXY-243 PO (14:35)
[2022-08-08] MEDS ORDERED: OLAN5TAB3 PO (14:46)
--- NOTE | 2022-08-08 15:12 | NUR ---
Patient stable and appropriate for discharge. All discharge instructions gone over with patient, all questions answered. IV removed canula intact. All belongings sent with patient. This nurse walked patient to lobby where family member was waiting to take him home in private vehicle.
== END 2022-08-08 15:10 | disposition home or self-care (01) | DRG 854 ==
LOC: ER 14:17 → ED HOLD 17:10 → PCU 3S 19:55 → ORTHO 4S 22:15
PROVIDERS: ADMIT Family Medicine; ATTEND Family Medicine
PROC: 0MB70ZZ Excision of Right Hand Bursa and Ligament, Open Approach (ICD-10-PCS; principal; 2022-08-05 20:14)
DX: A41.9 Sepsis, unspecified organism (principal); E87.1 Hypo-osmolality and hyponatremia; L02.31 Cutaneous abscess of buttock; L02.511 Cutaneous abscess of right hand; L03.113 Cellulitis of right upper limb; F10.10 Alcohol abuse, uncomplicated; F31.9 Bipolar disorder, unspecified; B95.61 Methicillin susceptible Staphylococcus aureus infection as the cause of diseases classified elsewhere; B19.20 Unspecified viral hepatitis C without hepatic coma; F90.9 Attention-deficit hyperactivity disorder, unspecified type; F11.90 Opioid use, unspecified, uncomplicated; F17.210 Nicotine dependence, cigarettes, uncomplicated; F43.10 Post-traumatic stress disorder, unspecified; R65.20 Severe sepsis without septic shock; Z86.14 Personal history of Methicillin resistant Staphylococcus aureus infection; Z90.49 Acquired absence of other specified parts of digestive tract; Z91.041 Radiographic dye allergy status; Z88.8 Allergy status to other drugs, medicaments and biological substances; Z79.899 Other long term (current) drug therapy; Z71.6 Tobacco abuse counseling
CPT/HCPCS: 93306; 99285; Z7506; 36415; 71045; 73130; 80053; 80202; 81001; 83605; 83735; 84145; 85025; 85651; 86140; 87040; 87070; 87075; 87077; 87186; 93005; A4618; A6209; A6222; A6223; A6266; A6446; A6449; A7000; G0378; J0692; J0694; J1100; J1170; J1885; J2060; J2270; J2405; J2704; J3010; J3370; J3490; J7030

== ENCOUNTER 2022-08-12 11:14 | Emergency (ER) | payer OTHER ==
[~2022-08-12 11:14] MED LIST changes: -CEPH-585 PO; +DOXY-243 PO; -IBUP-1985 PO; +NICO-687 TD; -NO HOME MEDS; +OLAN5TAB3 PO; +PER5325T PO; -SULF1TAB49 PO; +TRAZ150T78 PO
== END 2022-08-12 11:54 | disposition left against medical advice (07) ==
LOC: ER 11:14
DX: Z00.8 Encounter for other general examination (principal); Z53.21 Procedure and treatment not carried out due to patient leaving prior to being seen by health care provider

== ENCOUNTER 2022-10-20 18:33 | Emergency (ER) | payer MEDICAID ==
[~2022-10-20 18:33] MED LIST changes: -DOXY-243 PO
== END 2022-10-20 19:50 | disposition left against medical advice (07) ==
LOC: ER 18:33
DX: Z02.79 Encounter for issue of other medical certificate (principal); Z53.21 Procedure and treatment not carried out due to patient leaving prior to being seen by health care provider

== ENCOUNTER 2023-03-08 07:21 | Emergency (ER) | payer MEDICAID ==
[~2023-03-08] VITALS: Ht 183.5 cm; Wt 72.7 kg
[2023-03-08 08:16] VITALS: TEMP 97
[2023-03-08] MEDS ORDERED: LIDOcaine 1% 30ml preserv. free vial IJ ONE (09:50)
[2023-03-08 10:59] VITALS: BP 134/92; PULSE 102; RESP 16; O2SAT 98
[2023-03-08] MEDS ORDERED: cephalexin 500mg capsule PO ONE (12:10)
[2023-03-08] MEDS ORDERED: CEPH-585 PO (12:12)
== END 2023-03-08 13:15 | disposition home or self-care (01) ==
LOC: ER 07:22
DX: L03.011 Cellulitis of right finger (principal); Z86.14 Personal history of Methicillin resistant Staphylococcus aureus infection; F12.10 Cannabis abuse, uncomplicated; F15.10 Other stimulant abuse, uncomplicated; Z79.899 Other long term (current) drug therapy
CPT/HCPCS: 26010; 99284; A6266; A6449

== ENCOUNTER 2024-05-09 01:34 | Emergency (ER) | payer MEDICAID ==
[~2024-05-09] VITALS: Ht 185.4 cm; Wt 93.1 kg
[2024-05-09] MEDS ORDERED: NALO4SPR BOTHNARES (01:45)
[2024-05-09] MEDS: magnesium oxide 400mg tablet PO ONE (02:14)
[2024-05-09] MEDS: acetaminophen 325mg tablet PO ONE (02:14)
[2024-05-09] MEDS ORDERED: ketorolac trometh 15mg/ml vial 15 MG/ML ML IM ONE (03:20)
[2024-05-09] MEDS: ketorolac trometh 30MG/ML vial 30 MG/ML VIAL IM ONE (03:58)
[2024-05-09 05:30] VITALS: O2SAT 92
[2024-05-09 06:32] VITALS: BP 140/87; PULSE 78; RESP 16; TEMP 97.9
== END 2024-05-09 06:41 | disposition home or self-care (01) ==
LOC: ER 01:35
DX: T40.411A Poisoning by fentanyl or fentanyl analogs, accidental (unintentional), initial encounter (principal); G47.62 Sleep related leg cramps; J96.90 Respiratory failure, unspecified, unspecified whether with hypoxia or hypercapnia; F12.90 Cannabis use, unspecified, uncomplicated; F15.90 Other stimulant use, unspecified, uncomplicated; Z98.890 Other specified postprocedural states; F11.90 Opioid use, unspecified, uncomplicated; Z88.8 Allergy status to other drugs, medicaments and biological substances; Z90.49 Acquired absence of other specified parts of digestive tract
CPT/HCPCS: 96372; 99283; J1885